=== PATIENT | female | born 1965 | race Caucasian/White ===

== ENCOUNTER 2023-12-23 07:07 | Outpatient (CLI) | payer BC ==
[2023-12-23 15:04] LABS: ESTIMATED AVERAGE GLUCOSE 117 mg/dL (70-100); HEMOGLOBIN A1c% 5.7 % (4.27-6.07)
[2023-12-23 15:30] LABS: ALBUMIN 4.6 g/dL (3.2-5.5); ALBUMIN/GLOBULIN RATIO 2.1 (1.0-2.2); BILIRUBIN,TOTAL 0.5 mg/dL (0.2-1.0); CALCIUM 9.5 mg/dL (8.5-10.3); CREATININE 0.7 mg/dL (0.6-1.3); POTASSIUM 4.3 mmol/L (3.5-4.5); TOTAL PROTEIN 6.8 g/dL (6.4-8.9)
[2023-12-23 15:46] LABS: THYROID STIMULATING HORMONE 3.21 uIU/mL (0.34-5.60)
[2023-12-23 15:54] LABS: FERRITIN 39.5 ng/mL (11.0-306.8)
[2023-12-24 07:11] LABS: ESTRADIOL 27.8 pg/mL (.)
[2023-12-24 08:10] LABS: PROGESTERONE 0.3 ng/mL (.)
[2023-12-24 22:07] LABS: THYROGLOBULIN ANTIBODY 19.8 IU/mL (0.0-0.9)
== END 2023-12-23 07:08 | disposition home or self-care (01) ==
LOC: LAB.S 07:07
DX: E34.9 Endocrine disorder, unspecified (principal); E07.89 Other specified disorders of thyroid; R53.83 Other fatigue; R73.9 Hyperglycemia, unspecified; K30 Functional dyspepsia; D51.0 Vitamin B12 deficiency anemia due to intrinsic factor deficiency; N95.8 Other specified menopausal and perimenopausal disorders; E61.7 Deficiency of multiple nutrient elements
CPT/HCPCS: 36415; 80053; 82533; 82607; 82627; 82670; 82672; 82728; 82746; 83036; 83540; 84144; 84270; 84402; 84403; 84436; 84439; 84443; 84445; 84466; 84480; 84481; 86376; 86800